=== PATIENT | female | born 1995 | race Caucasian/White ===

== ENCOUNTER 2019-04-13 17:50 | Emergency (ER) | payer BC ==
[~2019-04-13] VITALS: Ht 188 cm; Wt 81.8 kg
[2019-04-13 18:06] VITALS: BP 105/55
== END 2019-04-13 22:36 | disposition home or self-care (01) ==
LOC: ED 22:18
DX: F32.0 Major depressive disorder, single episode, mild (principal); F10.120 Alcohol abuse with intoxication, uncomplicated; F41.1 Generalized anxiety disorder; R45.851 Suicidal ideations; Y90.9 Presence of alcohol in blood, level not specified
CPT/HCPCS: 36415; 80048; 80307; 82040; 85025; 99284